=== PATIENT | male | born 1965 | race Caucasian/White ===

== ENCOUNTER 2020-04-30 07:35 | Day surgery (SDC) | payer OTHER ==
[2020-04-23 16:06] LABS: BASOPHILS % (AUTO) 0.6 % (0-1); EOSINOPHILS # (AUTO) 0.1 X10'3 (0-0.9); EOSINOPHILS % (AUTO) 1.1 % (0-6); LYMPHOCYTES # (AUTO) 1.7 X10'3 (1.1-4.8); LYMPHOCYTES % (AUTO) 25.5 % (21-51); MEAN CORPUSCULAR HEMOGLOBIN 33.1 PG (27.0-31.0); MEAN CORPUSCULAR HGB CONC 34.8 g/dL (33.0-36.5); MEAN PLATELET VOLUME 8.2 FL (7.4-10.4); MONOCYTES # (AUTO) 0.6 X10'3 (0-0.9); MONOCYTES % (AUTO) 9.6 % (2-12); NEUTROPHILS # (AUTO) 4.2 X10'3 (1.8-7.7); NEUTROPHILS % (AUTO) 63.2 % (42-75); PRE OP HEMATOCRIT 41.4 % (42.0-52.0); PRE OP HEMOGLOBIN 14.4 g/dL (14.0-17.9); PRE OP PLATELET COUNT 254 X10'3 (140-440); RED BLOOD COUNT 4.36 X10'6 (4.70-6.10); RED CELL DISTRIBUTION WIDTH 13.4 % (11.5-14.5)
[2020-04-23 16:24] LABS: ALBUMIN 4.3 G/DL (3.4-5.0); ALBUMIN/GLOBULIN RATIO 1.5 (1.1-1.5); ALKALINE PHOSPHATASE 64 IU/L (46-116); BLOOD UREA NITROGEN 24 MG/DL (7-18); BUN/CREATININE RATIO 23.1 (5.4-32.0); CALCIUM 8.7 MG/DL (8.5-10.1); CHLORIDE 108 MMOL/L (99-107); CREATININE 1.04 MG/DL (0.60-1.10); PRE OP ALT 31 U/L (30-65); PRE OP ANION GAP 7 (8-16); PRE OP AST 17 U/L (10-37); PRE OP BILIRUB, TOTAL 0.6 MG/DL (0.0-1.0); PRE OP GLUCOSE 95 MG/DL (70-104); PRE OP POTASSIUM 4.5 MMOL/L (3.4-5.1); PRE OP SODIUM 144 MMOL/L (135-145); TOTAL CARBON DIOXIDE 29.3 MMOL/L (24-32); TOTAL PROTEIN 7.2 G/DL (6.4-8.2); eGFR 75 ML/MIN
[~2020-04-30] VITALS: Ht 190.5 cm; Wt 85.0 kg
[2020-04-30] VITALS (11 sets, daily range): BP systolic 124–140; BP diastolic 71–90
[~2020-04-30 07:35] MED LIST: ACET-2119 PO; ASPI-611 PO; CEPH250T PO; ETAN50CA SUBCUT; NABU750T2 PO; cefazolin/dext.iso 2gm/50ml 50 ML IV ONE; famotidine 20mg tablet PO ONE; ringers solution, lacted 1,000 ML IV SCH
[2020-04-30] MEDS ORDERED: ringers solution, lacted 1,000 ML IV SCH (07:57)
[2020-04-30] MEDS ORDERED: proCHLORperazine 10 MG/2 ml inj IV PRN (08:00)
[2020-04-30] MEDS ORDERED: morphine 4 MG/ML inj SYRINge IV PRN (08:00)
[2020-04-30] MEDS ORDERED: morphine 2 MG/ML inj. syringe IV PRN (08:00)
[2020-04-30] MEDS ORDERED: meperidine/PF 25mg/ml syringe IV PRN ×3 (08:00)
[2020-04-30] MEDS ORDERED: ondansetron/PF 4mg/2ml inj IV PRN (08:00)
[2020-04-30] MEDS ORDERED: bacitracin 15gm ointment TP ONE ×2 (09:02→10:22)
[2020-04-30] MEDS ORDERED: BUPIVAcaine/PF 2.5 mg/ml (0.25%) 30ml vial ONE ×2 (09:26→10:04)
[2020-04-30] MEDS ORDERED: dexamethasone sod phosphate 10mg/ml inj ONE (10:13)
[2020-04-30] MEDS ORDERED: sevoflurane 250ml liquid IH ONE (10:13)
[2020-04-30] MEDS ORDERED: midazolam 2 mg/2 ml injection ONE (10:21)
[2020-04-30] MEDS ORDERED: fentaNYL/PF 50MCG/1 ML 2ML syringe ONE (10:21)
[2020-04-30] MEDS ORDERED: propofol inj 20 ML IV ONE (10:29)
[2020-04-30] MEDS ORDERED: LIDOcaine 2% (20mg/ml) 5ml vial ONE (10:29)
[2020-04-30] MEDS ORDERED: ondansetron/PF 4mg/2ml inj ONE (10:29)
[2020-04-30] MEDS ORDERED: acetaminophen 1,000mg/100ml IV 100 ML IV ONE (11:02)
--- NOTE | 2020-04-30 11:25 | NUR ---
Received from OR via BED, accompanied by Anesthesiologist DR caldwell and report given by Anesthesiolgist. PATIENT A&OX4, DENIES PAIN, V/S WNL, NEUROVASCULAR CHECKS INTACT, 20G PIV LUE, SCD ON, DRESSING TO RIGHT foot CDI ELEVATED WITH ICEBAG APPLIED and cam boot is on right foot.
--- NOTE | 2020-04-30 12:45 | NUR ---
PATIENT A&OX4, DENIES PAIN, V/S WNL, NEUROVASCULAR CHECKS INTACT, 20G PIV LUE D/C, SCD OFF, DRESSING TO RIGHT ankle CDI ELEVATED WITH ICEBAG APPLIED and cam boot walker on. I HAVE REVIEWED D/C INSTRUCTIONS WITH PATIENT AND FAMILY AND THEY HAVE VERBALIZED UNDERSTANDING. PATIENT D/C HOME WITH ALL BELONGINGS AND FAMILY GAVE TRANSPORT HOME.
== END 2020-04-30 12:45 | disposition home or self-care (01) ==
LOC: PAS 07:35
PROVIDERS: ATTEND Podiatrist Foot & Ankle Surgery
DX: T84.84XA Pain due to internal orthopedic prosthetic devices, implants and grafts, initial encounter (principal); M25.871 Other specified joint disorders, right ankle and foot; M19.071 Primary osteoarthritis, right ankle and foot; K21.9 Gastro-esophageal reflux disease without esophagitis; M45.9 Ankylosing spondylitis of unspecified sites in spine; Z11.59 Encounter for screening for other viral diseases; Z98.890 Other specified postprocedural states; Z72.89 Other problems related to lifestyle; Z88.2 Allergy status to sulfonamides; Z79.899 Other long term (current) drug therapy; Z79.82 Long term (current) use of aspirin; Z82.49 Family history of ischemic heart disease and other diseases of the circulatory system; Y83.8 Other surgical procedures as the cause of abnormal reaction of the patient, or of later complication, without mention of misadventure at the time of the procedure; Y92.89 Other specified places as the place of occurrence of the external cause
CPT/HCPCS: 20680; 28315; 36415; 73620; 76000; 80053; 82948; 85025; A6223; J0131; J1100; J2001; J2250; J2405; J2704; J3010; J3490; J7120; U0003; A4215; A4618; A6449; A7000

== ENCOUNTER 2025-09-09 14:10 | Outpatient (CLI) | payer BC ==
[~2025-09-09 14:10] MED LIST changes: -ETAN50CA SUBCUT; +ETAN50CA3 SUBCUT; +NABU-141 PO; -NABU750T2 PO; -cefazolin/dext.iso 2gm/50ml 50 ML IV ONE; -famotidine 20mg tablet PO ONE; -ringers solution, lacted 1,000 ML IV SCH
--- NOTE | 2025-09-09 22:37 | CONSULTATION ---
DATE OF CONSULTATION: 09/09/2025 DICTATING PHYSICIAN: Cesilia Dc M.S., [facility]TIER IN MODIFIED BARIUM SWALLOW STUDY REPORT REFERRING PHYSICIAN: Riyk Rhodes MD. HISTORY OF PRESENT ILLNESS: The patient is a 60-year-old male and consents to this evaluation. History obtained from the patient and medical records. The patient reports symptoms of dysphagia, including coughing a lot on food and water. He reports that he has also had some experiences of choking on vial. He reports that this has been occurring for about a year, but has been more frequent lately. He notes some fluids can cause him to cough at any time during the day, but with food, it happens most at dinner time. The patient reports a medical history of 2 prior cerebral infarctions. He is not sure when these 2 CVAs occurred, but it was discovered in a brain scan earlier this year. He also notes that he has a brain aneurysm that is being monitored at this time. The patient also has a 4 cm left thyroid nodule. CURRENT DIET: In terms of caffeine, the patient has a cup of coffee on an occasional basis. He does not utilize tobacco products. He consumes 4 to 7 beers a week and bourbon every once in a while. He consumes chocolate in the form of Kit [employer]iffany twice a day. In terms of dairy products, the patient tends to avoid them because he has noticed that it aggravates symptoms of reflux. The patient typically does not have breakfast in the morning. He will snack throughout the day on the [employer] or sometimes some chips. For lunch, he has a small portion and it may be something like a salad bowl from [employer]. Typical dinner is eaten between 6 and 7 p.m. and may be pot roast with potatoes, carrots, and gravy, or a sloppy mart, or a chicken pot pie. He has a dessert of a popsicle and goes to bed at 8 p.m. MEDICATIONS: Enbrel 50 mg/mL subcutaneous syringe, 50 mg twice daily, pantoprazole 40 mg once daily, atorvastatin 20 mg once daily, aspirin 81 mg once daily, nabumetone 750 mg once daily, turmeric 1000 mg once daily, CoQ10 300 mg once daily, vitamin D3 125 mcg once daily, psyllium fiber once daily, vitamin B6 100 mg once daily. PARAMETERS: The patient is seated in a lateral 90-degree view and administered the usual protocol of thin and nectar thick liquids, puree and solid consistencies, as well as self-regulated boluses of thin liquids from the cup. RESULTS: In the oral stage of the swallow, oral transit is characterized by reduced lingual palatal stripping secondary to reduced tongue base retraction, which is mild to moderately reduced. There is a ljok-rp-wswagopj oral residue following the initial swallow of boluses. In the pharyngeal stage of the swallow, for the most part, swallow initiation is within functional limits; however, there was one instance on the 1 mL thin liquid and with the self-regulated thin liquid bolus, that swallow initiation was delayed to the level of the piriformis. With these 2 boluses, it was noted that the patient would begin to initiate his swallow, stop with the initiation, and then begin to initiate a swallow again and so this appeared to be why some of the liquid would fall back early. Anterior movement at the posterior pharyngeal wall was observed. Elevation of the hyothyroid complex was accomplished with full range of motion for epiglottic inversion and anterior and superior movement of the hyoid. There was a mild pharyngeal residue at the level of the PES opening and PES opening was mildly reduced. In terms of airway safety, the patient demonstrated aspiration of less than 10% of the bolus for the self-regulated bolus of thin liquid from the cup that was spontaneously cleared. ANTERIOR, POSTERIOR VIEW: In the AP plane, the bolus split symmetrically between the piriform sinuses. There was proximal movement of the bolus to the level of the mid sternum. IMPRESSION: The patient demonstrates with what appears to be a umoa-ad-oaubmajv pharyngoesophageal stage swallowing disorder characterized by uolw-qs-pdeiugwngw reduced tongue base retraction and proximal movement of the boluses in the AP view to the level of the mid sternum. DIAGNOSES: R13.14, dysphagia, pharyngoesophageal phase; K22, I63.9, cerebral infarction. PATIENT EDUCATION: Immediately following modified barium swallow study, the patient was able to view the results. The normal anatomy of the swallowing mechanism was revealed. The patient was able to see how the current status of the swallowing mechanism decreases his ability to swallow normally. He was educated on a recommendation for speech therapy to target strengthening the tongue base and declined to participate at this time, and so he was instructed in 1 exercise that he could complete at home, which was the effortful swallow exercise with written handout provided. He was also educated on dietary modifications for laryngopharyngeal reflux disease with written handout provided. RECOMMENDATIONS: 1. It is recommended that the patient follow the aforementioned dietary modifications for laryngopharyngeal reflux disease. 2. It is recommended that the patient complete the effortful swallow exercise independently as he had declined to participate in speech therapy at this time. LONG-TERM GOALS: The patient will maintain adequate hydration/nutrition with optimum safety and efficiency of swallow function on p.o. intake without overt signs and symptoms of aspiration for the highest possible diet level. FUNCTIONAL ORAL INTAKE: The FOIS was administered to establish and document a change in the functional eating activities of this patient over time. This is a 7-point scale with 1 indicating no oral intake and totally dependent and 7 indicating total oral intake with no restrictions. This patient received a 6 which indicates he has a total oral diet with multiple consistencies without special preparation but with specific food limitations and precautions. G-CODE: [id number]. Thank you very much for asking me to participate in the care of this kind patient. Should you have any questions regarding this evaluation or recommendations, please do not hesitate to contact me at [phone]. During this examination, 3 minutes 35 seconds of fluoroscopy time and 20.93 CAK mGy were utilized. Cesilia Dc M.S., [facility] IN TID: [id number] RECEIPT: [id number] [facility]IA[facility]
== END 2025-09-09 23:59 | disposition home or self-care (01) ==
LOC: RAD 14:10
PROVIDERS: ATTEND Otolaryngology
DX: R13.14 Dysphagia, pharyngoesophageal phase (principal); K22.2 Esophageal obstruction
CPT/HCPCS: 74230